=== PATIENT | female | born 1960 | race Caucasian/White ===

== ENCOUNTER 2019-08-27 05:35 | Day surgery (SDC) | payer BC ==
--- NOTE | 2019-08-26 15:21 | HP ---
HISTORY OF PRESENT ILLNESS: Ms. Lerma is a pleasant 58-year-old woman here today to discuss some 20+ years of left-sided lower back pain with associated L5 radicular pain. She has treated this with seemingly countless conservative methods with only modest relief. Her pains recently have worsened and it become refractory to injections and medications. MRI from [facility] on outpatient disk revealed provided reveals significant scoliotic curvature as well as significant facet hypertrophy at L4-L5 resulting in [id number] lateral recess stenosis on the . PHYSICAL EXAMINATION: GENERAL: She is alert and oriented x3. Gait is moderately antalgic. EXTREMITIES: Lower extremity motor exam is normal. She has a positive left straight leg raise. PAST MEDICAL HISTORY: Significant for chronic pain syndrome, hypothyroidism, chronic migraine headaches. CURRENT MEDICATIONS: Estrogen and Synthroid. ALLERGIES: NO KNOWN DRUG ALLERGIES. PAST SURGICAL HISTORY: Not listed. ASSESSMENT: Lumbar radiculopathy. PLAN: Dr. Mckeon met with the patient, reviewed imaging, advocated for left L4-L5 decompression. He explained to the patient the risks, benefits, and alternatives to the procedure. The patient expressed understanding and elected to move forward with surgery as discussed. I do believe the patient is mentally competent and capable of making medical decisions for herself. We will move forward with surgery as planned. Job ID: [id number]
[2019-08-27] MEDS ORDERED: Fentanyl 100 MCG/2 ML VIAL ONE (06:06)
[2019-08-27] MEDS ORDERED: Midazolam HCl 2 mg/2 ml Vial ONE (06:06)
[2019-08-27] MEDS ORDERED: HYDROmorphone 0.5 MG/0.5 ML SYRINGE ONE (06:06)
[2019-08-27] MEDS ORDERED: Lidocaine 2% Jelly 5 ML TUBE ONE (06:06)
[2019-08-27] MEDS ORDERED: Thrombin 5000 UNITS/5 ML VIAL ONE (06:12)
[2019-08-27] MEDS ORDERED: Bupivacaine PF 0.5% 30 ML VIAL ONE (06:12)
[2019-08-27] MEDS ORDERED: Ondansetron PF 4 MG/2 ML Vial ONE (10:12)
[2019-08-27] MEDS ORDERED: Glycopyrrolate 0.2 MG/ML 5 ML SYRINGE ONE (10:12)
[2019-08-27] MEDS ORDERED: PROPOFOL 200 MG/20 ML VIAL ONE (10:12)
[2019-08-27] MEDS ORDERED: Dexamethasone 20 MG/5 ML VIAL ONE (10:12)
[2019-08-27] MEDS ORDERED: PHENYLEPHRINE-NS 100 MCG/ML 10 ML SYRINGE ONE (10:12)
[2019-08-27] MEDS ORDERED: Lidocaine 1% PF 5 ML VIAL ONE (10:12)
[2019-08-27] MEDS ORDERED: ePHEDrine/0.9% NaCl/PF SYRINGE 50 mg/10 ml ONE (10:12)
[2019-08-27] MEDS ORDERED: Rocuronium Bromide 10 MG/ML (10ML VIAL) ONE (10:12)
--- NOTE | 2019-08-27 11:41 | OP ---
DATE OF PROCEDURE: 08/27/2019 [employer]IC[employer] REPAIRER: Mesfin Lamar PA-C INDICATION: Pain. DIAGNOSIS: Lumbar radiculopathy. PROCEDURE PERFORMED: Left L4-L5 decompression. ANESTHESIA: General. DESCRIPTION OF PROCEDURE: The patient was brought into the operating room and placed under general anesthesia. She was flipped from the supine to prone position on the operating room table. A linear incision was planned over L4-L5. After prepping and draping and after an appropriate perioperative pause, the incision was created. The soft tissues were swept left of midline. A C-arm image was obtained confirming the appropriate level. A self-retaining retractor was placed for optimal exposure. After confirming the appropriate level with C-arm fluoroscopy, high-speed cutting drill bit as well as 2, 3, and 4 mm Kerrisons were used to perform a laminectomy along the inferior aspect of L4 and the superior aspect of L5. The laminectomy was extended laterally to encompass the medial aspect of the facet joint in order to adequately decompress the descending L5 nerve root. After completing the decompression, the wound was irrigated. Hemostasis was maintained throughout. The wound was then closed in anatomic layers and a pressure dressing was applied. There were no known procedural complications. Job ID: [id number]
== END 2019-08-27 11:55 | disposition home or self-care (01) ==
LOC: SDC 05:35
PROVIDERS: ATTEND Neurological Surgery
PROC: 01NB0ZZ Release Lumbar Nerve, Open Approach (ICD-10-PCS; principal; 2019-08-27)
DX: M48.061 Spinal stenosis, lumbar region without neurogenic claudication (principal); M54.16 Radiculopathy, lumbar region; M41.9 Scoliosis, unspecified; G89.4 Chronic pain syndrome; E03.9 Hypothyroidism, unspecified; G43.909 Migraine, unspecified, not intractable, without status migrainosus; Z79.899 Other long term (current) drug therapy; Z88.0 Allergy status to penicillin; Z88.5 Allergy status to narcotic agent
CPT/HCPCS: 76000; J1100; J1170; J2001; J2250; J2405; J2704; J3010; S0020